=== PATIENT | female | born 1950 | race Two or more races ===

== ENCOUNTER 2023-09-28 12:54 | Emergency (ER) | payer OTHER ==
[~2023-09-28] VITALS: Ht 152.4 cm; Wt 113.6 kg
[2023-09-28 14:54] VITALS: BP 140/71; PULSE 88; RESP 20; O2SAT 97
[2023-09-28] MEDS ORDERED: HYDROcodone-ACET 5/325MG TAB PO ONE (15:30)
[2023-09-28] MEDS ORDERED: HYDR-4902 PO (16:08)
== END 2023-09-28 16:32 | disposition home or self-care (01) ==
LOC: EDBD 12:54 → ER 12:54
DX: S42.401A Unspecified fracture of lower end of right humerus, initial encounter for closed fracture (principal); E11.9 Type 2 diabetes mellitus without complications; Z90.49 Acquired absence of other specified parts of digestive tract; W18.09XA Striking against other object with subsequent fall, initial encounter; Y93.01 Activity, walking, marching and hiking; Y92.89 Other specified places as the place of occurrence of the external cause; Y99.8 Other external cause status
CPT/HCPCS: 29105; 73030; 73060